=== PATIENT | male | born 1970 | race Caucasian/White ===

== ENCOUNTER 2021-07-15 22:53 | Emergency (ER) | payer OTHER ==
[~2021-07-15] VITALS: Ht 190.5 cm; Wt 124.6 kg
[2021-07-15 23:26] VITALS: BP 136/92
--- NOTE | 2021-07-15 23:32 | PHYS DOC ---
General Adult EDM: Chief Complaint: ELBOW PROBLEM HPI: HPI: ". I got this elbow problems...I noticed it was swollen this morniing.. and I got on a air flight to [place] in 3 hrs.... I had something wrong with it a month or so back.. like maybe an infection.. but it went away... " Patient is a 50 year old male who presents with above hx and complaints left elbow edema and swelling. Patient does have a ulnar bursa that is swollen and red overlying skin was discolored. No striations. No adenopathy. No history immunosuppression. Patient is right-hand dominant. Patient does rest on his elbow when he sits in chairs. Patient denies any specific trauma. No recent travel but plans on a trip to [place] in 3 hours. Patient felt he may need antibiotics for the return of the cellulitis on left elbow. Patient up-to-date with tetanus. No history of MRSA. Does not feel he has any foreign body in left elbow. Patient normally follows with Dr. Kelly. Review of Systems: Review of Systems: Constitutional: Denies fever or chills Eyes: Denies change in visual acuity HENT: Denies nasal congestion or sore throat Respiratory: Denies cough or shortness of breath Cardiovascular: Denies chest pain or edema GI: Denies abdominal pain, nausea, vomiting, bloody stools or diarrhea : Denies dysuria Musculoskeletal: Denies back pain or joint pain. Complains of left elbow pain Integument: Denies rash Neurologic: Denies headache, focal weakness or sensory changes Endocrine: Denies polyuria or polydipsia Lymphatic: Denies swollen glands Psychiatric: Denies depression or anxiety Family History: Family History: Noncontributory to presentation Current Medications: Current Meds: See nursing for home meds Allergies: Allergies: Allergic to penicillins Tylenol and oxycodone Physical Exam: PE: Constitutional: Well developed, well nourished, no acute distress, non-toxic appearance. [] HENT: Normocephalic, atraumatic, bilateral external ears normal, oropharynx moist, no oral exudates, nose normal. [] Eyes: PERRLA, EOMI, conjunctiva normal, no discharge. [] Neck: Normal range of motion, no tenderness, supple, no stridor. [] Cardiovascular:Heart rate regular rhythm, no murmur [] Lungs & Thorax: Bilateral breath sounds clear to auscultation [] Abdomen: Bowel sounds normal, soft, no tenderness, no masses, no pulsatile masses. [] Skin: Warm, dry, no erythema, no rash. Except findings of possible cellulitis over left elbow Back: No tenderness, no CVA tenderness. [] Extremities: No tenderness, no cyanosis, no clubbing, ROM intact, no edema. [] Except findings of swelling in left elbow bursa Neurologic: Alert and oriented X 3, normal motor function, normal sensory function, no focal deficits noted. [] Psychologic: Affect anxious, judgement normal, mood normal. [] EKG: EKG: [] Radiology/Procedures: Radiology/Procedures: [][address] [address] IMAGING REPORT Signed PATIENT: FRANCHESKA BOWERS ACCOUNT: [id number] : 1970 LOCATION: ER AGE: 50 SEX: M EXAM STATUS: DEP ER ORD. PHYSICIAN: KRISTIN GUERRERO MD REASON: PAIN, FLUID FILLED AREA PROCEDURE: ELBOW LEFT 3V XR ELBOW COMPLETE_LEFT 3+VIEWS 07/15/2021 11:38 PM INDICATION: Pain COMPARISON: None available. TECHNIQUE: 3 views of the left elbow are provided. FINDINGS/ IMPRESSION: No significant elbow joint effusion. There is no acute fracture or dislocation. Joint spaces are maintained. Bone mineralization is within normal limits. Regional soft tissues are within normal limits. There is no soft tissue gas or osseous erosion. No radiopaque foreign body. Electronically signed by: Ragini Jain MD (07/16/2021 12:06 AM) [facility] [place] DICTATED AND SIGNED BY: RAGINI JAIN MD DATE: 07/16/21 0006 CC: JENNY KELLY MD; KRISTIN GUERRERO MD ~MTH0 0 Heart Score: C/O Chest Pain: N/A Risk Factors: Risk Factors: DM, Current or recent (<one month) smoker, HTN, HLP, family history of CAD, obesity. Risk Scores: Score 0 - 3: 2.5% MACE over next 6 weeks - Discharge Home Score 4 - 6: 20.3% MACE over next 6 weeks - Admit for Clinical Observation Score 7 - 10: 72.7% MACE over next 6 weeks - Early Invasive Strategies Course & Med Decision Making: Course & Med Decision Making Pertinent Labs and Imaging studies reviewed. (See chart for details) Procedure note: Aspiration of left elbow bursa-reviewed risks and benefits of the procedure. Scrub elbow with Betadine. Aspirated approximately 10 cc of fluid from left elbow bursa. Entered bursa through noninflamed skin. Sample fluid sent for cultures and cell counts. Evaluate for crystals. Dressing applied. Patient use warm compresses of salt water or Epson salts 4 times a day. After application compresses several minutes. To massage in Polysporin. Patient take Bactrim DS twice a day. Patient follow-up primary care. Patient return if any concerns. Patient follow-up pending culture. Impression: 1. Left elbow bursitis 2. Possible left elbow cellulitis [] Dragon Disclaimer: Dragon Disclaimer: This electronic medical record was generated, in whole or in part, using a voice recognition dictation system. Departure Departure: Referrals: JENNY KELLY MD (PCP) Scripts Sulfamethoxazole/Trimethoprim (BACTRIM DS TABLET) 1 Each Tablet 1 EACH PO BID for cellitis for 14 Days, #28 TAB Prov: KRISTIN GUERRERO MD 07/15/21 Dom Disclaimer This chart was dictated in whole or in part using Voice Recognition software in a busy, high-work load, and often noisy Emergency Department environment. It may contain unintended and wholly unrecognized errors or omissions. KRISTIN GUERRERO MD Jul 15, 2021 23:32
[2021-07-15] MEDS ORDERED: SULF1TAB24 PO (23:39)
[2021-07-16] MEDS ORDERED: SMZ/TMP 800/160MG TABLET. PO ONE
--- NOTE | 2021-07-16 00:09 | RAD ---
XR ELBOW COMPLETE_LEFT 3+VIEWS 07/15/2021 11:38 PM INDICATION: Pain COMPARISON: None available. TECHNIQUE: 3 views of the left elbow are provided. FINDINGS/ IMPRESSION: No significant elbow joint effusion. There is no acute fracture or dislocation. Joint spaces are main tained. Bone mineralization is within normal limits. Regional soft tissues are within normal limits. There is no soft tissue gas or osseous erosion. No radiopaque foreign body. Electronically signed by: Neha Mari MD (07/16/2021 12:06 AM) [facility]
== END 2021-07-16 00:06 | disposition home or self-care (01) ==
LOC: ER 22:53
DX: M70.32 Other bursitis of elbow, left elbow (principal); Z88.0 Allergy status to penicillin; Z88.5 Allergy status to narcotic agent; Z88.8 Allergy status to other drugs, medicaments and biological substances; Y93.89 Activity, other specified
CPT/HCPCS: 20605; 36415; 73080; 89060; 99284